=== PATIENT | female | born 1950 | race African-American/Black ===

== ENCOUNTER 2018-06-14 17:20 | Emergency (ER) | payer MEDICARE ==
[~2018-06-14] VITALS: Ht 160 cm; Wt 57.0 kg
[~2018-06-14 17:20] MED LIST: AMLO2.5T45 PO
[2018-06-14 17:46] VITALS: BP 149/66
[2018-06-14] MEDS ORDERED: LOSA25TA3 PO (17:51)
== END 2018-06-14 21:00 | disposition home or self-care (01) ==
LOC: ER 20:26
DX: I10 Essential (primary) hypertension (principal); I25.2 Old myocardial infarction; Z76.0 Encounter for issue of repeat prescription
CPT/HCPCS: 99283

== ENCOUNTER 2021-11-10 12:07 | Emergency (ER) | payer MEDICARE, OTHER, MEDICAID ==
[~2021-11-10] VITALS: Ht 160 cm; Wt 58.0 kg
[~2021-11-10 12:07] MED LIST changes: +LOSA25TA3 PO
[2021-11-10 12:14] VITALS: BP 133/67
== END 2021-11-10 15:20 | disposition home or self-care (01) ==
LOC: ER 12:07
DX: S93.492A Sprain of other ligament of left ankle, initial encounter (principal); G20 Parkinson's disease; X58.XXXA Exposure to other specified factors, initial encounter; Y93.89 Activity, other specified; Y92.018 Other place in single-family (private) house as the place of occurrence of the external cause
CPT/HCPCS: 73610; 73630; 99284

== ENCOUNTER 2022-06-10 00:35 | Emergency (ER) | payer MEDICARE, MEDICAID ==
[~2022-06-10] VITALS: Ht 160 cm; Wt 55.0 kg
[2022-06-10] MEDS ORDERED: KETOROLAC 60MG/2ML VIAL IM ONE (01:30)
[2022-06-10] MEDS ORDERED: IBUP-2028 MT (02:33)
[2022-06-10] MEDS ORDERED: HYDR-4001 MT ×2 (02:33→02:34)
[2022-06-10 04:40] VITALS: BP 165/69
== END 2022-06-10 04:45 | disposition home or self-care (01) ==
LOC: ER 00:45
DX: M54.31 Sciatica, right side (principal); I10 Essential (primary) hypertension
CPT/HCPCS: 73502; 96372; 99283; J1885

== ENCOUNTER 2022-07-04 10:34 | Emergency (ER) | payer MEDICARE, MEDICAID ==
[~2022-07-04] VITALS: Ht 167.6 cm; Wt 56.0 kg
[~2022-07-04 10:34] MED LIST changes: +HYDR-4001 MT; +IBUP-2028 MT
[2022-07-04 11:38] VITALS: BP 189/80
[2022-07-04] MEDS ORDERED: KETOROLAC 60MG/2ML VIAL IM ONE (14:45)
[2022-07-04 15:44] LABS: BASOPHILS % 0.6 % (0.0-2.0); EOSINOPHILS % 1.1 % (0.0-5.0); HEMATOCRIT. 37.5 % (36.0-48.0); HEMOGLOBIN. 12.4 g/dL (12.0-16.0); LYMPHOCYTES % 24.9 % (20.0-50.0); MEAN CORPUSCULAR HEMOGLOBIN 29.3 pg (28.0-32.0); MEAN CORPUSCULAR VOLUME 88.5 fL (81.0-99.0); MONOCYTES % 9.2 % (2.0-8.0); NEUTROPHILS % 64.2 % (40.0-76.0); PLATELET 220 x1000/uL (130-400); RED BLOOD CELL COUNT 4.23 mill/uL (4.2-5.4); RED CELL DISTRIBUTION WIDTH 13.2 % (11.6-14.6)
[2022-07-04 16:00] LABS: CHLORIDE 107 mEq/L (98-107)
[2022-07-04] MEDS ORDERED: ACET-2708 MT (16:18)
== END 2022-07-04 16:39 | disposition home or self-care (01) ==
LOC: ER 10:34 → CANBEDREQ 17:30
DX: M54.50 Low back pain, unspecified (principal); I49.9 Cardiac arrhythmia, unspecified
CPT/HCPCS: 36415; 71045; 72100; 80053; 85025; 93005; 96372; 99285; J1885